=== PATIENT | male | born 1995 | race Caucasian/White ===

== ENCOUNTER 2022-03-10 21:54 | Emergency (ER) | payer OTHER ==
[2022-03-10 22:03] VITALS: BP 138/76; PULSE 98; RESP 16; BMI 29.7
[2022-03-10] MEDS ORDERED: LIDOCAINE HCL 1%, 10 MG/ML (50 mL VIAL) SQ ONE (22:33)
[2022-03-10] MEDS ORDERED: DIPHTH,PERTUSS(ACELL),TET 0.5 ML DISP.SYRIN IM ONE (22:33)
[2022-03-10] MEDS ORDERED: LIDOCAINE HCL 2% (20ML MULTI-DOSE VIAL) ONE (22:46)
[2022-03-10] MEDS ORDERED: LIDOCAINE HCL 1%, 10 MG/ML (20ML VIAL) ONE (22:46)
== END 2022-03-10 23:31 | disposition home or self-care (01) ==
LOC: JER 21:54
PROC: 3E0234Z Introduction of Serum, Toxoid and Vaccine into Muscle, Percutaneous Approach (ICD-10-PCS; principal; 2022-03-10)
DX: M79.642 Pain in left hand (principal); W27.8XXA Contact with other nonpowered hand tool, initial encounter
CPT/HCPCS: 73130-TC-LT-FY; 90471; 90715; 99284-25

== ENCOUNTER 2023-12-24 10:35 | Emergency (ER) | payer OTHER ==
[2023-12-24 10:40] VITALS: BP 129/85; PULSE 79; RESP 18; TEMP 98; BMI 28.1
== END 2023-12-24 12:10 | disposition home or self-care (01) ==
LOC: JERFT 10:35
DX: H10.501 Unspecified blepharoconjunctivitis, right eye (principal)
CPT/HCPCS: 99283-25